=== PATIENT | male | born 1955 | race Caucasian/White ===

== ENCOUNTER → 2020-07-12 | Outpatient (CLI) | payer MEDICAID, OTHER ==
[~2020-07-12] MED LIST: ASPI-1497 MT; ATOR40TA70 MT; BENA20TA10 MT; BUSP10TA3 PO; DULA0.75 SQ; GLIM2TAB30 MT
== END | disposition home or self-care (01) ==
LOC: LAB 08:00
PROVIDERS: ATTEND Specialist
DX: Z01.818 Encounter for other preprocedural examination (principal); Z11.59 Encounter for screening for other viral diseases; R05 Cough; Z20.828 Contact with and (suspected) exposure to other viral communicable diseases
CPT/HCPCS: C9803; U0003

== ENCOUNTER → 2020-07-13 | Day surgery (SDC) | payer MEDICAID, OTHER ==
[~2020-07-13] VITALS: Ht 172.7 cm; Wt 96.2 kg
[~2020-07-13] MED LIST changes: +ACETAMINOPHEN 325MG TABLET PO PRN; +ASPIRIN/SOD BICARB/CITRIC ACID 324MG TAB EFF ONE; +ATROPINE SULFATE 1MG/10ML SYR IV PRN; +FENTANYL CITRATE/PF 50MCG/ML 2ML VIAL ONE; +HEPARIN SODIUM 1,000 UNIT/1ML VIAL IV ONE; +IODIXANOL 320MG/ML 100 ML BOTTLE IV ONE; +LIDOCAINE HCL 1% 20ML VIAL (Pyxis) INJ ONE; +MIDAZOLAM HCL 2 MG/2 ML VIAL ONE; +MORPHINE SULFATE 2 MG/ML CPJ (NOT FOR IM USE) IV PRN; +NICARDIPINE 100MCG/ML 10ML VIAL (CATH LAB) IV ONE; +NITROGLYCERIN 50MCG/ML 10ML VIAL (CATH LAB) IV ONE; +ONDANSETRON HCL 4MG/2ML INJ IV PRN
== END | disposition home or self-care (01) ==
LOC: CCL 06:46
PROVIDERS: ATTEND Specialist
DX: I25.10 Atherosclerotic heart disease of native coronary artery without angina pectoris (principal); I10 Essential (primary) hypertension; E11.9 Type 2 diabetes mellitus without complications; E78.5 Hyperlipidemia, unspecified; Z79.82 Long term (current) use of aspirin; Z79.84 Long term (current) use of oral hypoglycemic drugs; Z79.899 Other long term (current) drug therapy; Z88.5 Allergy status to narcotic agent; Z98.890 Other specified postprocedural states
CPT/HCPCS: 82962; 93458; C1769; C1887; C1893; J1644; J2250; J3010; J3490; Q9967

== ENCOUNTER 2020-07-17 07:59 | Emergency (ER) | payer MEDICAID ==
[~2020-07-17] VITALS: Ht 172.7 cm; Wt 95.0 kg
[~2020-07-17 07:59] MED LIST changes: -ACETAMINOPHEN 325MG TABLET PO PRN; -ASPIRIN/SOD BICARB/CITRIC ACID 324MG TAB EFF ONE; -ATROPINE SULFATE 1MG/10ML SYR IV PRN; -FENTANYL CITRATE/PF 50MCG/ML 2ML VIAL ONE; -HEPARIN SODIUM 1,000 UNIT/1ML VIAL IV ONE; -IODIXANOL 320MG/ML 100 ML BOTTLE IV ONE; -LIDOCAINE HCL 1% 20ML VIAL (Pyxis) INJ ONE; -MIDAZOLAM HCL 2 MG/2 ML VIAL ONE; -MORPHINE SULFATE 2 MG/ML CPJ (NOT FOR IM USE) IV PRN; -NICARDIPINE 100MCG/ML 10ML VIAL (CATH LAB) IV ONE; -NITROGLYCERIN 50MCG/ML 10ML VIAL (CATH LAB) IV ONE; -ONDANSETRON HCL 4MG/2ML INJ IV PRN
[2020-07-17] MEDS: HYDROCODONE/ACETAMINOPHEN 5/325MG TABLET PO ONE ×2 (09:15→09:16)
[2020-07-17 11:44] VITALS: BP 115/60
== END 2020-07-17 11:45 | disposition home or self-care (01) ==
LOC: ER 08:37
DX: T88.8XXA Other specified complications of surgical and medical care, not elsewhere classified, initial encounter (principal); E11.9 Type 2 diabetes mellitus without complications; J45.909 Unspecified asthma, uncomplicated; I51.9 Heart disease, unspecified; Z88.5 Allergy status to narcotic agent; Y83.8 Other surgical procedures as the cause of abnormal reaction of the patient, or of later complication, without mention of misadventure at the time of the procedure; Y92.018 Other place in single-family (private) house as the place of occurrence of the external cause
CPT/HCPCS: 76881; 93005; 99284

== ENCOUNTER 2024-10-16 07:38 | Inpatient (IN) | payer OTHER ==
[2024-10-16] VITALS (24 sets, daily range): BP systolic 120–144; BP diastolic 56–67; PULSE 49–96; RESP 12–34; TEMP 36.33624–37.16964; O2SAT 96–100
[~2024-10-16] VITALS: Ht 172.7 cm; Wt 98.9 kg
[~2024-10-16 07:38] MED LIST changes: +BENA-8 MT; -BENA20TA10 MT
[2024-10-16] MEDS: IPRATROPIUM/ALBUTEROL 0.5-3(2.5)MG/3ML NEB ONE (09:17)
[2024-10-16] MEDS: IPRATROPIUM/ALBUTEROL 0.5-3(2.5)MG/3ML NEB HHN NR (09:17)
[2024-10-16] MEDS ORDERED: LIDOCAINE HCL 1% 20ML VIAL ONE (10:35)
[2024-10-16] MEDS ORDERED: HEPARIN 1000 UNITS/ML 10ML ONE (10:35)
[2024-10-16] MEDS ORDERED: IODIXANOL 320MG/ML 100 ML BOTTLE IV ONE (10:35)
[2024-10-16] MEDS ORDERED: EPINEPHRINE 0.1MG/ML (1:10,000) 10ML SYR ONE (10:36)
[2024-10-16] MEDS ORDERED: ATROPINE SULFATE 1MG/10ML SYR ONE (10:36)
[2024-10-16] MEDS ORDERED: MIDAZOLAM HCL 2 MG/2 ML VIAL ONE (10:46)
[2024-10-16] MEDS ORDERED: FENTANYL CITRATE/PF 50MCG/ML 2ML VIAL ONE (10:47)
[2024-10-16] MEDS ORDERED: SITA100T11 PO (11:09)
[2024-10-16] MEDS ORDERED: TAMS-11 PO (11:09)
[2024-10-16] MEDS ORDERED: METF-416 PO (11:09)
[2024-10-16] MEDS ORDERED: INSU100V36 SQ (11:09)
[2024-10-16] MEDS ORDERED: OMEP20CA14 PO (11:09)
[2024-10-16] MEDS ORDERED: PRAV40TA58 PO (11:09)
[2024-10-16] MEDS ORDERED: ALLO100T PO (11:09)
[2024-10-16] MEDS ORDERED: GLIP10TA17 PO (11:09)
[2024-10-16] MEDS: SODIUM CHLORIDE 0.45% 500 ML IV ONE (11:50)
[2024-10-16] MEDS ORDERED: ONDANSETRON HCL 4MG/2ML INJ IV PRN (12:15)
[2024-10-16] MEDS ORDERED: ATROPINE SULFATE 1MG/10ML SYR IV PRN (12:15)
[2024-10-16] MEDS: NITROGLYCERIN OINT 1GM/INCH UDPKT TD NR (14:15)
[2024-10-16] MEDS ORDERED: MORPHINE SULFATE 2 MG/ML INJ (NOT FOR IM USE) IV PRN (14:30)
[2024-10-16] MEDS ORDERED: NITROGLYCERIN 0.4MG TABLET SL SL PRN (15:00)
[2024-10-16] MEDS: NITROGLYCERIN 0.4MG TABLET SL SL PRN (15:07)
[2024-10-16] MEDS: NITROGLYCERIN 50MG PREMIX 250 ML IV PRN (15:58)
[2024-10-16 16:17] LABS: BASOPHILS % 0.5 % (0.0-2.0); EOSINOPHILS % 0.9 % (0.0-5.0); HEMATOCRIT. 37.4 % (42.0-52.0); HEMOGLOBIN. 12.2 g/dL (14.0-18.0); LYMPHOCYTES % 61.4 % (20.0-50.0); MEAN CORPUSCULAR HEMOGLOBIN 30.2 pg (28.0-32.0); MEAN CORPUSCULAR HGB CONC 32.5 g/dL (31.0-37.0); MEAN CORPUSCULAR VOLUME 92.8 fL (80.0-94.0); MEAN PLATELET VOLUME 7.6 fl (7.4-10.4); MONOCYTES % 5.6 % (2.0-8.0); NEUTROPHILS % 31.6 % (40.0-76.0); PLATELET 161 x1000/uL (130-400); RED BLOOD CELL COUNT 4.03 mill/uL (4.7-6.1); RED CELL DISTRIBUTION WIDTH 13.1 % (11.6-14.6); WHITE BLOOD COUNT 9.6 x1000/uL (4.5-11.0)
[2024-10-16 16:26] LABS: CHLORIDE 104 mEq/L (98-107); PARTIAL THROMBOPLASTIN TIME 23.7 sec (23.4-31.0); POTASSIUM 4.3 mEq/L (3.5-5.1); PROTHROMBIN TIME 11.5 sec (9.6-11.0); SODIUM 137 mEq/L (136-145)
[2024-10-16 16:28] LABS: CALCIUM 9.4 mg/dL (8.7-10.4); CARBON DIOXIDE 25 mEq/L (21-32)
[2024-10-16] MEDS: FENTANYL CITRATE/PF 50MCG/ML 2ML VIAL IV PRN (16:29)
[2024-10-16 16:33] LABS: CREATININE 0.8 mg/dL (0.6-1.3); GLUCOSE 95 mg/dL (70-105); UREA NITROGEN BLOOD 12 mg/dL (9-23)
[2024-10-16 16:35] LABS: ALANINE AMINOTRANSFERASE 50 IU/L (10-49); ALBUMIN 3.7 g/dL (3.2-4.8); ASPARTATE AMINOTRANSFERASE 47 IU/L (<34); BILIRUBIN TOTAL 0.9 mg/dL (0.1-1.0); PROTEIN TOTAL 6.6 g/dL (6.0-8.3)
[2024-10-16] MEDS: HEPARIN 60 UNITS/KG BOLUS IV NR (17:22)
[2024-10-16] MEDS: HEPARIN 25,000 UNITS PREMIX 250 ML IV SCH (17:23)
[2024-10-16] MEDS ORDERED: NITROGLYCERIN OINT 1GM/INCH UDPKT TD SCH (18:00)
[2024-10-16 18:21] LABS: CLARITY URINE CLEAR (CLEAR); COLOR URINE ORANGE (YELLOW); GLUCOSE URINE NEGATIVE (NEGATIVE); KETONES URINE NEGATIVE (NEGATIVE); LEUKOCYTE ESTERASE URINE NEGATIVE (NEGATIVE); NITRITE URINE NEGATIVE (NEGATIVE); OCCULT BLOOD URINE 3+ (NEGATIVE); PROTEIN URINE TRACE (NEGATIVE)
[2024-10-16 18:44] LABS: TROPONIN I HIGH SENSITIVITY 17 ng/L (3.0-53)
[2024-10-16 18:45] LABS: AMYLASE 74 IU/L (30-118)
[2024-10-16 18:46] LABS: BACTERIA URINE NONE SEEN; RBC URINE TNTC /hpf (0-2); SQUAMOUS EPITHELIAL CELL URINE RARE /lpf (RARE/1+); WBC URINE 0-2 /hpf (0-2)
[2024-10-16] MEDS ORDERED: ATOR40TA70 MT (19:33)
[2024-10-16] MEDS: ASCORBIC ACID 500 MG TABLET PO SCH (20:32)
[2024-10-16] MEDS: CHLORHEXIDINE GLUCONATE 4% EXTERNAL USE TOP SCH (20:32)
[2024-10-16] MEDS: ATORVASTATIN CALCIUM 20MG TABLET PO SCH (20:32)
[2024-10-16] MEDS: PANTOPRAZOLE SODIUM 40 MG/VIAL IV SCH (20:32)
[2024-10-16] MEDS ORDERED: DIPHENHYDRAMINE 25MG CAPSULE PO PRN (21:00)
[2024-10-16] MEDS ORDERED: MAGNESIUM 2 G PREMIX 50 ML IV NR (21:15)
[2024-10-16] MEDS: MAGNESIUM 2 G PREMIX 50 ML IV NR (22:21)
[2024-10-16] MEDS ORDERED: HEPARIN BOLUS PRN aPTT 30-44 IV (23:00)
[2024-10-16] MEDS ORDERED: HEPARIN BOLUS PRN aPTT <30 IV (23:00)
[2024-10-17] VITALS (67 sets, daily range): BP systolic 90–149; BP diastolic 42–74; PULSE 45–110; RESP 11–24; TEMP 34.66944–38.3364; O2SAT 97–100
[2024-10-17] MEDS: DEXT 5%/0.45% NACL 1000ML 1,000 ML IV SCH (00:16)
[2024-10-17 03:51] LABS: BASOPHILS % 0.7 % (0.0-2.0); EOSINOPHILS % 1.2 % (0.0-5.0); HEMATOCRIT. 36.5 % (42.0-52.0); HEMOGLOBIN. 12.3 g/dL (14.0-18.0); LYMPHOCYTES % 60.3 % (20.0-50.0); MEAN CORPUSCULAR HEMOGLOBIN 30.5 pg (28.0-32.0); MEAN CORPUSCULAR HGB CONC 33.9 g/dL (31.0-37.0); MEAN CORPUSCULAR VOLUME 90.1 fL (80.0-94.0); MEAN PLATELET VOLUME 7.8 fl (7.4-10.4); MONOCYTES % 5.4 % (2.0-8.0); NEUTROPHILS % 32.4 % (40.0-76.0); PLATELET 152 x1000/uL (130-400); RED BLOOD CELL COUNT 4.05 mill/uL (4.7-6.1); RED CELL DISTRIBUTION WIDTH 13.2 % (11.6-14.6); WHITE BLOOD COUNT 8.2 x1000/uL (4.5-11.0)
[2024-10-17 04:05] LABS: CALCIUM 8.9 mg/dL (8.7-10.4); CARBON DIOXIDE 28 mEq/L (21-32); CHLORIDE 108 mEq/L (98-107); POTASSIUM 3.9 mEq/L (3.5-5.1); SODIUM 141 mEq/L (136-145)
[2024-10-17 04:10] LABS: CREATININE 0.9 mg/dL (0.6-1.3); GLUCOSE 152 mg/dL (70-105)
[2024-10-17 04:11] LABS: UREA NITROGEN BLOOD 15 mg/dL (9-23)
[2024-10-17] MEDS: VANCOMYCIN 1GM PMX (XELLIA) 200 ML IV NR (04:20)
[2024-10-17 05:00] LABS: PHOSPHORUS 3.8 mg/dL (2.5-4.9)
[2024-10-17] MEDS ORDERED: NOREPINEPHRINE 8MG/250ML PMX 250 ML IV PRN (05:00)
[2024-10-17] MEDS ORDERED: NICARDIPINE 40MG/200ML PREMIX 200 ML IV PRN (05:00)
[2024-10-17] MEDS ORDERED: DOBUTAMINE 250 MG/250 ML PREMIX IV PRN (05:00)
[2024-10-17] MEDS ORDERED: DEL NIDO CARDIOPLEGIA 1,000 ML (PREMIX) IV NR ×2 (05:00)
[2024-10-17] MEDS ORDERED: DOPAMINE 400 MG PREMIX 250 ML IV PRN (05:00)
[2024-10-17] MEDS ORDERED: PAPAVERINE HCL 180MG in SODIUM CHLORIDE 0.9% 24ML IV NR (05:00)
[2024-10-17] MEDS ORDERED: CEFAZOLIN 2,000 MG in DEXT 5% WATER 100 ML IV NR (05:00)
[2024-10-17] MEDS ORDERED: AMINOCAPROIC ACID 5,000 MG in SODIUM CHLORIDE 0.9% 250 ML IV NR (05:00)
[2024-10-17] MEDS ORDERED: EPINEPHRINE 5 MG in DEXT 5% WATER 250 ML IV PRN (05:00)
[2024-10-17] MEDS: MAGNESIUM 2 G PREMIX 50 ML IV NR (06:11)
[2024-10-17] MEDS: CHLORHEXIDINE GLUCONATE 4% EXTERNAL USE TOP NR (06:11)
[2024-10-17] MEDS ORDERED: THROMBIN (BOVINE) 5000 UNITS/VIAL TOP ONE (06:26)
[2024-10-17] MEDS ORDERED: POLYMYXIN B SULFATE 500000 UNITS/VIAL ONE (06:26)
[2024-10-17] MEDS ORDERED: DESMOPRESSIN ACETATE 4MCG/ML AMP ONE (06:27)
[2024-10-17] MEDS ORDERED: VASOPRESSIN 20 UNIT/ML 1ML ONE (06:27)
[2024-10-17] MEDS ORDERED: SEVOFLURANE 250 ML LIQUID INH ONE (06:37)
[2024-10-17] MEDS ORDERED: HEPARIN 1000 UNITS/ML 10ML ONE (06:37)
[2024-10-17] MEDS ORDERED: NITROGLYCERIN 50MG PREMIX 250 ML IV ONE (06:37)
[2024-10-17] MEDS ORDERED: FENTANYL CITRATE/PF 50MCG/ML 5ML VIAL ONE ×3 (07:03→13:43)
[2024-10-17] MEDS ORDERED: HYDROMORPHONE HCL/PF 1MG/ML INJ ONE ×2 (07:03→07:04)
[2024-10-17] MEDS ORDERED: MIDAZOLAM HCL 2 MG/2 ML VIAL ONE ×5 (07:04→07:05)
[2024-10-17] MEDS ORDERED: ROCURONIUM BROMIDE 10MG/ML VIAL 5ML IV ONE (07:05)
[2024-10-17] MEDS ORDERED: MORPHINE SULFATE 10 MG/ML INJ (NOT FOR IM USE) IV ONE (07:22)
[2024-10-17] MEDS ORDERED: DEXTROSE 50% WATER 50ML SYRINGE IV PRN ×2 (08:30)
[2024-10-17] MEDS ORDERED: CALCIUM CHLORIDE 1GM/10ML SYR IV ONE (12:26)
[2024-10-17 13:10] LABS: BASOPHILS % 0.5 % (0.0-2.0); EOSINOPHILS % 0.9 % (0.0-5.0); HEMATOCRIT. 25.8 % (42.0-52.0); HEMOGLOBIN. 8.7 g/dL (14.0-18.0); LYMPHOCYTES % 32.4 % (20.0-50.0); MEAN CORPUSCULAR HEMOGLOBIN 30.4 pg (28.0-32.0); MEAN CORPUSCULAR HGB CONC 33.7 g/dL (31.0-37.0); MEAN CORPUSCULAR VOLUME 90.3 fL (80.0-94.0); MEAN PLATELET VOLUME 7.7 fl (7.4-10.4); NEUTROPHILS % 64.2 % (40.0-76.0); PLATELET 149 x1000/uL (130-400); RED BLOOD CELL COUNT 2.86 mill/uL (4.7-6.1); RED CELL DISTRIBUTION WIDTH 12.9 % (11.6-14.6); WHITE BLOOD COUNT 8.7 x1000/uL (4.5-11.0)
[2024-10-17 13:19] LABS: CHLORIDE 104 mEq/L (98-107); POTASSIUM 5.5 mEq/L (3.5-5.1); SODIUM 137 mEq/L (136-145)
[2024-10-17 13:20] LABS: CARBON DIOXIDE 24 mEq/L (21-32)
[2024-10-17 13:21] LABS: CALCIUM 11.8 mg/dL (8.7-10.4)
[2024-10-17] MEDS ORDERED: MILRINONE 20MG-DEXT 5% PREMIX 100 ML IV ONE (13:21)
[2024-10-17] MEDS ORDERED: SODIUM BICARBONATE 8.4% 50MEQ/50ML SYR IV ONE (13:24)
[2024-10-17 13:25] LABS: CREATININE 1.1 mg/dL (0.6-1.3); GLUCOSE 156 mg/dL (70-105)
[2024-10-17 13:26] LABS: UREA NITROGEN BLOOD 14 mg/dL (9-23)
[2024-10-17 13:27] LABS: ALANINE AMINOTRANSFERASE 24 IU/L (10-49); ASPARTATE AMINOTRANSFERASE 39 IU/L (<34)
[2024-10-17 13:28] LABS: ALBUMIN 3.6 g/dL (3.2-4.8); BILIRUBIN TOTAL 1.2 mg/dL (0.1-1.0); PHOSPHORUS 3.7 mg/dL (2.5-4.9); PROTEIN TOTAL 5.1 g/dL (6.0-8.3)
[2024-10-17 13:44] LABS: INR 1.3; PARTIAL THROMBOPLASTIN TIME 31.6 sec (23.4-31.0); PROTHROMBIN TIME 14.2 sec (9.6-11.0)
[2024-10-17] MEDS ORDERED: SUGAMMADEX SODIUM 200MG/2ML VIAL IV ONE (14:02)
[2024-10-17 14:51] LABS: BG BASE EXCESS -5.7 mmol/L (-2.0-3.0); BG CARBOXYHEMOGLOBIN 0.4 % (0.5-1.5); BG DEOXYHEMOGLOBIN 3.1 % (0.0-5.0); BG FRACTION INSPIRED OXYGEN 100; BG HCO3 ACT 20.6 mmol/L (21.0-28.0); BG METHEMOGLOBIN 0.1 % (0.5-1.5); BG OXYGEN SATURATION 96.9 % (94.0-98.0); BG OXYHEMOGLOBIN 96.4 % (94.0-98.0); BG PCO2 43.8 mmHg (35.0-48.0); BG PH 7.291 (7.350-7.450); BG PO2 108.8 mmHg (83.0-108.0); BG SAMPLE SITE ALINE; BG TOTAL HEMOGLOBIN 10.2 g/dL (13.5-17.5); BG VENT MODE VENT - AC
[2024-10-17] MEDS: SODIUM BICARBONATE 8.4% 50MEQ/50ML SYR IV NR (15:02)
[2024-10-17] MEDS: INSULIN REGULAR 100 U/100 ML PREMIX IV PRN (15:03)
[2024-10-17 15:53] LABS: BASOPHILS % 0.2 % (0.0-2.0); EOSINOPHILS % 0.3 % (0.0-5.0); HEMATOCRIT. 27.3 % (42.0-52.0); HEMOGLOBIN. 9.4 g/dL (14.0-18.0); LYMPHOCYTES % 48.9 % (20.0-50.0); MEAN CORPUSCULAR HEMOGLOBIN 31.3 pg (28.0-32.0); MEAN CORPUSCULAR HGB CONC 34.4 g/dL (31.0-37.0); MEAN CORPUSCULAR VOLUME 91.2 fL (80.0-94.0); MONOCYTES % 3.3 % (2.0-8.0); NEUTROPHILS % 47.3 % (40.0-76.0); PLATELET 109 x1000/uL (130-400); WHITE BLOOD COUNT 10.4 x1000/uL (4.5-11.0)
[2024-10-17 16:10] LABS: CHLORIDE 108 mEq/L (98-107); POTASSIUM 5.1 mEq/L (3.5-5.1); SODIUM 142 mEq/L (136-145)
[2024-10-17] MEDS: BLOOD SUGAR DIAGNOSTIC STRIP TEST SCH ×2 (16:10→21:00)
[2024-10-17] MEDS: PHYTONADIONE 10MG/ML INJ SUBCUT NR (16:10)
[2024-10-17 16:11] LABS: CALCIUM 10.4 mg/dL (8.7-10.4); CARBON DIOXIDE 24 mEq/L (21-32)
[2024-10-17 16:16] LABS: BG BASE EXCESS -3.2 mmol/L (-2.0-3.0); BG CARBOXYHEMOGLOBIN 0.3 % (0.5-1.5); BG DEOXYHEMOGLOBIN 4.1 % (0.0-5.0); BG FRACTION INSPIRED OXYGEN 80; BG HCO3 ACT 22.6 mmol/L (21.0-28.0); BG METHEMOGLOBIN 0.3 % (0.5-1.5); BG OXYGEN SATURATION 95.9 % (94.0-98.0); BG OXYHEMOGLOBIN 95.3 % (94.0-98.0); BG PCO2 43.7 mmHg (35.0-48.0); BG PH 7.331 (7.350-7.450); BG PO2 92.3 mmHg (83.0-108.0); BG SAMPLE SITE ALINE; BG TOTAL HEMOGLOBIN 10.5 g/dL (13.5-17.5); BG VENT MODE VENT - AC
[2024-10-17 16:16] LABS: CREATININE 1.1 mg/dL (0.6-1.3); GLUCOSE 149 mg/dL (70-105); UREA NITROGEN BLOOD 15 mg/dL (9-23)
[2024-10-17] MEDS: PHYTONADIONE 10 MG in DEXTROSE 5% WATER 49 ML IV NR (16:39)
[2024-10-17 17:43] LABS: BG BASE EXCESS -0.3 mmol/L (-2.0-3.0); BG CARBOXYHEMOGLOBIN 0.3 % (0.5-1.5); BG FRACTION INSPIRED OXYGEN 50; BG HCO3 ACT 24.9 mmol/L (21.0-28.0); BG METHEMOGLOBIN 0.3 % (0.5-1.5); BG OXYHEMOGLOBIN 95.4 % (94.0-98.0); BG PCO2 43.1 mmHg (35.0-48.0); BG PH 7.379 (7.350-7.450); BG PO2 89.6 mmHg (83.0-108.0); BG SAMPLE SITE ALINE; BG TOTAL HEMOGLOBIN 10.3 g/dL (13.5-17.5); BG VENT MODE VENT - AC
[2024-10-17 18:46] LABS: BG BASE EXCESS 1.5 mmol/L (-2.0-3.0); BG CARBOXYHEMOGLOBIN 0.3 % (0.5-1.5); BG DEOXYHEMOGLOBIN 2.6 % (0.0-5.0); BG FRACTION INSPIRED OXYGEN 40; BG HCO3 ACT 26.5 mmol/L (21.0-28.0); BG METHEMOGLOBIN 0.3 % (0.5-1.5); BG OXYGEN SATURATION 97.4 % (94.0-98.0); BG OXYHEMOGLOBIN 96.8 % (94.0-98.0); BG PCO2 43.9 mmHg (35.0-48.0); BG PH 7.399 (7.350-7.450); BG PO2 107.4 mmHg (83.0-108.0); BG SAMPLE SITE ALINE; BG TOTAL HEMOGLOBIN 9.6 g/dL (13.5-17.5); BG VENT MODE VENT - AC
[2024-10-17 19:48] LABS: INR 1.4; PROTHROMBIN TIME 15.6 sec (9.6-11.0)
[2024-10-17] MEDS: ACETAMINOPHEN 325MG TABLET PO PRN (19:54)
[2024-10-17 20:14] LABS: BG BASE EXCESS 0.5 mmol/L (-2.0-3.0); BG CARBOXYHEMOGLOBIN 0.6 % (0.5-1.5); BG DEOXYHEMOGLOBIN 2.9 % (0.0-5.0); BG FRACTION INSPIRED OXYGEN 40; BG OXYGEN SATURATION 97.1 % (94.0-98.0); BG OXYHEMOGLOBIN 96.5 % (94.0-98.0); BG PCO2 39.3 mmHg (35.0-48.0); BG PH 7.421 (7.350-7.450); BG PO2 99.8 mmHg (83.0-108.0); BG TOTAL HEMOGLOBIN 9.2 g/dL (13.5-17.5); BG VENT MODE VENT - SIMV
[2024-10-17 20:25] LABS: BASOPHILS % 0.3 % (0.0-2.0); EOSINOPHILS % 0.2 % (0.0-5.0); HEMATOCRIT. 25.9 % (42.0-52.0); MEAN CORPUSCULAR HEMOGLOBIN 31.3 pg (28.0-32.0); MEAN CORPUSCULAR HGB CONC 34.8 g/dL (31.0-37.0); MEAN CORPUSCULAR VOLUME 90.1 fL (80.0-94.0); MEAN PLATELET VOLUME 7.3 fl (7.4-10.4); MONOCYTES % 8.2 % (2.0-8.0); NEUTROPHILS % 68.3 % (40.0-76.0); PLATELET 122 x1000/uL (130-400); RED BLOOD CELL COUNT 2.88 mill/uL (4.7-6.1); WHITE BLOOD COUNT 7.6 x1000/uL (4.5-11.0)
[2024-10-17 20:39] LABS: INR 1.1; PARTIAL THROMBOPLASTIN TIME 40.7 sec (23.4-31.0); PROTHROMBIN TIME 11.9 sec (9.6-11.0)
[2024-10-17] MEDS: BACITRACIN 14GM TUBE TOP SCH (21:00)
[2024-10-17] MEDS: IPRATROPIUM/ALBUTEROL 0.5-3(2.5)MG/3ML NEB HHN SCH (21:07)
[2024-10-17 21:12] LABS: BASOPHILS % 0.2 % (0.0-2.0); EOSINOPHILS % 0.2 % (0.0-5.0); HEMATOCRIT. 25.3 % (42.0-52.0); HEMOGLOBIN. 8.7 g/dL (14.0-18.0); LYMPHOCYTES % 21.9 % (20.0-50.0); MEAN CORPUSCULAR HEMOGLOBIN 30.9 pg (28.0-32.0); MEAN CORPUSCULAR HGB CONC 34.5 g/dL (31.0-37.0); MEAN CORPUSCULAR VOLUME 89.6 fL (80.0-94.0); MONOCYTES % 8.9 % (2.0-8.0); NEUTROPHILS % 68.8 % (40.0-76.0); PLATELET 121 x1000/uL (130-400); RED BLOOD CELL COUNT 2.83 mill/uL (4.7-6.1); RED CELL DISTRIBUTION WIDTH 12.9 % (11.6-14.6); WHITE BLOOD COUNT 7.1 x1000/uL (4.5-11.0)
[2024-10-17 21:19] LABS: CHLORIDE 113 mEq/L (98-107); SODIUM 148 mEq/L (136-145)
[2024-10-17 21:20] LABS: CALCIUM 10.3 mg/dL (8.7-10.4); CARBON DIOXIDE 29 mEq/L (21-32)
[2024-10-17 21:22] LABS: POTASSIUM 3.1 mEq/L (3.5-5.1)
[2024-10-17 21:25] LABS: CREATININE 1.2 mg/dL (0.6-1.3); GLUCOSE 112 mg/dL (70-105); UREA NITROGEN BLOOD 15 mg/dL (9-23)
[2024-10-17 21:30] LABS: PHOSPHORUS 0.7 mg/dL (2.5-4.9)
[2024-10-17 22:20] LABS: BASOPHILS % 0.4 % (0.0-2.0); EOSINOPHILS % 0.2 % (0.0-5.0); HEMATOCRIT. 27.7 % (42.0-52.0); HEMOGLOBIN. 9.6 g/dL (14.0-18.0); LYMPHOCYTES % 23.3 % (20.0-50.0); MEAN CORPUSCULAR HEMOGLOBIN 31.7 pg (28.0-32.0); MEAN CORPUSCULAR HGB CONC 34.5 g/dL (31.0-37.0); MEAN CORPUSCULAR VOLUME 91.7 fL (80.0-94.0); MEAN PLATELET VOLUME 7.6 fl (7.4-10.4); MONOCYTES % 8.9 % (2.0-8.0); NEUTROPHILS % 67.2 % (40.0-76.0); PLATELET 119 x1000/uL (130-400); RED BLOOD CELL COUNT 3.02 mill/uL (4.7-6.1); RED CELL DISTRIBUTION WIDTH 13.2 % (11.6-14.6); WHITE BLOOD COUNT 7.7 x1000/uL (4.5-11.0)
[2024-10-17 22:22] LABS: CHLORIDE 112 mEq/L (98-107); POTASSIUM 3.2 mEq/L (3.5-5.1); SODIUM 148 mEq/L (136-145)
[2024-10-17 22:23] LABS: CALCIUM 10.3 mg/dL (8.7-10.4); CARBON DIOXIDE 28 mEq/L (21-32)
[2024-10-17 22:28] LABS: CREATININE 1.1 mg/dL (0.6-1.3); GLUCOSE 115 mg/dL (70-105); UREA NITROGEN BLOOD 14 mg/dL (9-23)
[2024-10-17 22:30] LABS: PHOSPHORUS 1.1 mg/dL (2.5-4.9)
[2024-10-17] MEDS ORDERED: KCL 10MEQ/50ML PREMIX 100 ML IV PRN (22:45)
[2024-10-17] MEDS ORDERED: KCL 10MEQ/50ML PREMIX 150 ML IV PRN (22:45)
[2024-10-17] MEDS: KCL 10MEQ/50ML PREMIX 200 ML IV PRN (23:25)
[2024-10-18] VITALS (93 sets, daily range): BP systolic 95–160; BP diastolic 40–91; PULSE 64–89; RESP 15–31; TEMP 36.61404–37.66968; O2SAT 86–100
[2024-10-18] MEDS: POTASSIUM PHOSPHATE 15 MMOL in DEXT 5% WATER 245 ML IV ONE (01:41)
[2024-10-18] MEDS: PROPOFOL 10MG/ML 100ML 100 ML IV PRN (01:50)
[2024-10-18] MEDS: INSULIN REGULAR 100U/100ML PMX 100 ML IV SCH (03:21)
[2024-10-18 06:47] LABS: BG BASE EXCESS 1.3 mmol/L (-2.0-3.0); BG CARBOXYHEMOGLOBIN 0.3 % (0.5-1.5); BG DEOXYHEMOGLOBIN 2.3 % (0.0-5.0); BG FRACTION INSPIRED OXYGEN 40; BG HCO3 ACT 26.3 mmol/L (21.0-28.0); BG METHEMOGLOBIN 0.3 % (0.5-1.5); BG OXYGEN SATURATION 97.7 % (94.0-98.0); BG OXYHEMOGLOBIN 97.1 % (94.0-98.0); BG PCO2 43.4 mmHg (35.0-48.0); BG PH 7.401 (7.350-7.450); BG PO2 108.8 mmHg (83.0-108.0); BG TOTAL HEMOGLOBIN 10.4 g/dL (13.5-17.5); BG VENT MODE VENT - CPAP
[2024-10-18 06:54] LABS: BASOPHILS % 0.4 % (0.0-2.0); EOSINOPHILS % 0.1 % (0.0-5.0); HEMATOCRIT. 30.3 % (42.0-52.0); HEMOGLOBIN. 9.8 g/dL (14.0-18.0); LYMPHOCYTES % 27.9 % (20.0-50.0); MEAN CORPUSCULAR HEMOGLOBIN 29.9 pg (28.0-32.0); MEAN CORPUSCULAR HGB CONC 32.4 g/dL (31.0-37.0); MEAN CORPUSCULAR VOLUME 92.1 fL (80.0-94.0); MEAN PLATELET VOLUME 7.9 fl (7.4-10.4); MONOCYTES % 10.8 % (2.0-8.0); NEUTROPHILS % 60.8 % (40.0-76.0); PLATELET 138 x1000/uL (130-400); RED BLOOD CELL COUNT 3.29 mill/uL (4.7-6.1); RED CELL DISTRIBUTION WIDTH 13.4 % (11.6-14.6); WHITE BLOOD COUNT 10.8 x1000/uL (4.5-11.0)
[2024-10-18 06:55] LABS: CHLORIDE 112 mEq/L (98-107); SODIUM 147 mEq/L (136-145)
[2024-10-18 06:56] LABS: CARBON DIOXIDE 30 mEq/L (21-32)
[2024-10-18 06:57] LABS: CALCIUM 9.8 mg/dL (8.7-10.4)
[2024-10-18 07:01] LABS: CREATININE 1.3 mg/dL (0.6-1.3); GLUCOSE 129 mg/dL (70-105)
[2024-10-18 07:02] LABS: TRIGLYCERIDE 150 mg/dL (0-150); UREA NITROGEN BLOOD 17 mg/dL (9-23)
[2024-10-18 07:04] LABS: PHOSPHORUS 4.5 mg/dL (2.5-4.9)
[2024-10-18 08:47] LABS: POTASSIUM 5.4 mEq/L (3.5-5.1)
[2024-10-18] MEDS ORDERED: RACEPINEPHRINE 2.25% 0.5ML NEB VIAL ONE (09:14)
[2024-10-18] MEDS: ASPIRIN 81MG TABLET PO SCH (09:21)
[2024-10-18 13:23] LABS: PHOSPHORUS 4.6 mg/dL (2.5-4.9)
[2024-10-18 13:24] LABS: BASOPHILS % 0.4 % (0.0-2.0); HEMATOCRIT. 30.8 % (42.0-52.0); LYMPHOCYTES % 22.1 % (20.0-50.0); MEAN CORPUSCULAR HEMOGLOBIN 30.6 pg (28.0-32.0); MEAN CORPUSCULAR HGB CONC 32.6 g/dL (31.0-37.0); MEAN PLATELET VOLUME 8.9 fl (7.4-10.4); MONOCYTES % 9.3 % (2.0-8.0); NEUTROPHILS % 68.2 % (40.0-76.0); PLATELET 138 x1000/uL (130-400); RED BLOOD CELL COUNT 3.28 mill/uL (4.7-6.1); WHITE BLOOD COUNT 13.6 x1000/uL (4.5-11.0)
[2024-10-18] MEDS ORDERED: DEXTROSE 50% WATER 50ML SYRINGE IV PRN (14:15)
[2024-10-18] MEDS: MAGNESIUM 1 G PREMIX 100 ML IV NR (14:29)
[2024-10-18 16:41] LABS: CHLORIDE 106 mEq/L (98-107); POTASSIUM 4.1 mEq/L (3.5-5.1); SODIUM 139 mEq/L (136-145)
[2024-10-18 16:42] LABS: CARBON DIOXIDE 24 mEq/L (21-32)
[2024-10-18 16:47] LABS: CREATININE 1.1 mg/dL (0.6-1.3); GLUCOSE 235 mg/dL (70-105); UREA NITROGEN BLOOD 20 mg/dL (9-23)
[2024-10-18 16:49] LABS: PHOSPHORUS 4.5 mg/dL (2.5-4.9)
[2024-10-18] MEDS: BLOOD SUGAR DIAGNOSTIC STRIP TEST SCH (17:28)
[2024-10-18] MEDS: INSULIN LISPRO 100 UNITS/ML SUBCUT SCH (17:39)
[2024-10-19] VITALS (56 sets, daily range): BP systolic 111–168; BP diastolic 55–89; PULSE 75–90; RESP 14–35; TEMP 36.83628–37.28076; O2SAT 90–98
[2024-10-19] MEDS: DEXT 5%/0.45% NACL 1000ML 1,000 ML IV SCH (02:16)
[2024-10-19 04:23] LABS: HEMATOCRIT 26.9 % (42.0-52.0); HEMOGLOBIN 9.1 g/dL (14.0-18.0); MEAN CORPUSCULAR HEMOGLOBIN 31.2 pg (28.0-32.0); MEAN CORPUSCULAR HGB CONC 33.9 g/dL (31.0-37.0); MEAN CORPUSCULAR VOLUME 92.1 fL (80.0-94.0); PLATELET 112 x1000/uL (130-400); RED BLOOD CELL COUNT 2.92 mill/uL (4.7-6.1); RED CELL DISTRIBUTION WIDTH 13.3 % (11.6-14.6); WHITE BLOOD COUNT 10.5 x1000/uL (4.5-11.0)
[2024-10-19 04:28] LABS: CARBON DIOXIDE 25 mEq/L (21-32); CHLORIDE 105 mEq/L (98-107); POTASSIUM 4.5 mEq/L (3.5-5.1); SODIUM 138 mEq/L (136-145)
[2024-10-19 04:29] LABS: CALCIUM 9.2 mg/dL (8.7-10.4)
[2024-10-19 04:34] LABS: CREATININE 1.1 mg/dL (0.6-1.3); GLUCOSE 305 mg/dL (70-105); UREA NITROGEN BLOOD 19 mg/dL (9-23)
[2024-10-19] MEDS: MAGNESIUM 2 G PREMIX 50 ML IV SCH (08:22)
[2024-10-19 10:19] LABS: BASOPHILS % 0.3 % (0.0-2.0); EOSINOPHILS % 0.1 % (0.0-5.0); HEMATOCRIT. 27.7 % (42.0-52.0); HEMOGLOBIN. 9.3 g/dL (14.0-18.0); LYMPHOCYTES % 25.4 % (20.0-50.0); MEAN CORPUSCULAR HGB CONC 33.7 g/dL (31.0-37.0); MEAN CORPUSCULAR VOLUME 91.9 fL (80.0-94.0); MONOCYTES % 7.3 % (2.0-8.0); NEUTROPHILS % 66.9 % (40.0-76.0); PLATELET 130 x1000/uL (130-400); RED BLOOD CELL COUNT 3.01 mill/uL (4.7-6.1)
[2024-10-19 10:30] LABS: CHLORIDE 102 mEq/L (98-107); POTASSIUM 4.3 mEq/L (3.5-5.1); SODIUM 135 mEq/L (136-145)
[2024-10-19 10:31] LABS: CALCIUM 9.2 mg/dL (8.7-10.4); CARBON DIOXIDE 23 mEq/L (21-32)
[2024-10-19 10:36] LABS: GLUCOSE 332 mg/dL (70-105); UREA NITROGEN BLOOD 19 mg/dL (9-23)
[2024-10-19 10:38] LABS: PHOSPHORUS 2.8 mg/dL (2.5-4.9)
[2024-10-19] MEDS: SODIUM CHLORIDE 0.45% 1,000 ML IV SCH (13:16)
[2024-10-19] MEDS: INSULIN LISPRO 100 UNITS/ML SUBCUT SCH (13:17)
[2024-10-19] MEDS: METFORMIN HCL 500MG TABLET PO SCH (17:48)
[2024-10-19] MEDS: INSULIN GLARGINE 100 UNITS/ML SUBCUT SCH (22:01)
[2024-10-20] VITALS (82 sets, daily range): BP systolic 100–180; BP diastolic 56–88; PULSE 71–96; RESP 12–33; TEMP 37.00296–37.83636; O2SAT 78–100
[2024-10-20 05:20] LABS: BASOPHILS % 0.2 % (0.0-2.0); EOSINOPHILS % 0.6 % (0.0-5.0); HEMATOCRIT. 26.1 % (42.0-52.0); HEMOGLOBIN. 9.2 g/dL (14.0-18.0); LYMPHOCYTES % 37.9 % (20.0-50.0); MEAN CORPUSCULAR HEMOGLOBIN 31.7 pg (28.0-32.0); MEAN CORPUSCULAR HGB CONC 35.1 g/dL (31.0-37.0); MEAN CORPUSCULAR VOLUME 90.1 fL (80.0-94.0); MEAN PLATELET VOLUME 7.7 fl (7.4-10.4); MONOCYTES % 7.9 % (2.0-8.0); NEUTROPHILS % 53.4 % (40.0-76.0); PLATELET 117 x1000/uL (130-400); RED CELL DISTRIBUTION WIDTH 13.1 % (11.6-14.6); WHITE BLOOD COUNT 8.3 x1000/uL (4.5-11.0)
[2024-10-20 05:21] LABS: CHLORIDE 107 mEq/L (98-107); POTASSIUM 4.2 mEq/L (3.5-5.1); SODIUM 138 mEq/L (136-145)
[2024-10-20 05:22] LABS: CALCIUM 8.9 mg/dL (8.7-10.4); CARBON DIOXIDE 24 mEq/L (21-32)
[2024-10-20 05:27] LABS: CREATININE 0.8 mg/dL (0.6-1.3); UREA NITROGEN BLOOD 19 mg/dL (9-23)
[2024-10-20 05:29] LABS: PHOSPHORUS 2.8 mg/dL (2.5-4.9)
[2024-10-20 05:58] LABS: GLUCOSE 167 mg/dL (70-105)
[2024-10-20] MEDS: MAGNESIUM 2 G PREMIX 50 ML IV NR ×2 (06:46→17:02)
[2024-10-20] MEDS ORDERED: NALOXONE HCL 0.4MG/ML VIAL IV PRN (09:15)
[2024-10-20] MEDS ORDERED: TRAMADOL 50MG TABLET PO NR (09:15)
[2024-10-20 12:57] LABS: CARBON DIOXIDE 24 mEq/L (21-32); CHLORIDE 102 mEq/L (98-107); POTASSIUM 4.3 mEq/L (3.5-5.1); SODIUM 136 mEq/L (136-145)
[2024-10-20 12:58] LABS: CALCIUM 9.2 mg/dL (8.7-10.4)
[2024-10-20 13:02] LABS: CREATININE 0.9 mg/dL (0.6-1.3); GLUCOSE 228 mg/dL (70-105)
[2024-10-20 13:03] LABS: UREA NITROGEN BLOOD 20 mg/dL (9-23)
[2024-10-20] MEDS: LACTULOSE 20G/30ML UDC PO PRN (18:57)
[2024-10-20] MEDS: TRAMADOL 50MG TABLET PO PRN (20:03)
[2024-10-21] VITALS (8 sets, daily range): BP systolic 116–139; BP diastolic 60–89; PULSE 71–81; RESP 13–22; TEMP 36.50292–36.89184; O2SAT 93–100
[2024-10-21 07:56] LABS: CARBON DIOXIDE 26 mEq/L (21-32); CHLORIDE 105 mEq/L (98-107); POTASSIUM 3.7 mEq/L (3.5-5.1); SODIUM 139 mEq/L (136-145)
[2024-10-21 07:58] LABS: CALCIUM 8.8 mg/dL (8.7-10.4)
[2024-10-21 08:02] LABS: CREATININE 0.8 mg/dL (0.6-1.3); GLUCOSE 156 mg/dL (70-105)
[2024-10-21 08:03] LABS: UREA NITROGEN BLOOD 20 mg/dL (9-23)
[2024-10-21] MEDS: POTASSIUM CHLORIDE 20MEQ TABLET SR PO NR (10:19)
[2024-10-21 10:21] LABS: BASOPHILS % 0.6 % (0.0-2.0); EOSINOPHILS % 1.9 % (0.0-5.0); HEMATOCRIT. 27.6 % (42.0-52.0); HEMOGLOBIN. 9.4 g/dL (14.0-18.0); LYMPHOCYTES % 44.7 % (20.0-50.0); MEAN CORPUSCULAR HEMOGLOBIN 31.1 pg (28.0-32.0); MEAN CORPUSCULAR HGB CONC 34.1 g/dL (31.0-37.0); MEAN CORPUSCULAR VOLUME 91.3 fL (80.0-94.0); MONOCYTES % 8.6 % (2.0-8.0); NEUTROPHILS % 44.2 % (40.0-76.0); RED BLOOD CELL COUNT 3.02 mill/uL (4.7-6.1); RED CELL DISTRIBUTION WIDTH 13.2 % (11.6-14.6); WHITE BLOOD COUNT 9.1 x1000/uL (4.5-11.0)
[2024-10-21 10:33] LABS: DIFFERENTIAL COMMENT 1; MEAN PLATELET VOLUME 9.3 fl (7.4-10.4); PLATELET 149 x1000/uL (130-400)
== END 2024-10-21 18:37 | disposition home health service (06) | DRG 233 ==
LOC: CCL 07:38 → OBSVTOIN 19:37 → CVICU 19:37 → 3WST 10-20 19:41
PROVIDERS: ADMIT Internal Medicine; ATTEND Internal Medicine
PROC: 4A023N7 Measurement of Cardiac Sampling and Pressure, Left Heart, Percutaneous Approach (ICD-10-PCS; 2024-10-16)
PROC: B211YZZ Fluoroscopy of Multiple Coronary Arteries using Other Contrast (ICD-10-PCS; 2024-10-16)
PROC: B215YZZ Fluoroscopy of Left Heart using Other Contrast (ICD-10-PCS; 2024-10-16)
PROC: 021009W Bypass Coronary Artery, One Artery from Aorta with Autologous Venous Tissue, Open Approach (ICD-10-PCS; principal; 2024-10-17)
PROC: 02100Z9 Bypass Coronary Artery, One Artery from Left Internal Mammary, Open Approach (ICD-10-PCS; 2024-10-17)
PROC: 06BQ4ZZ Excision of Left Saphenous Vein, Percutaneous Endoscopic Approach (ICD-10-PCS; 2024-10-17)
PROC: 5A1221Z Performance of Cardiac Output, Continuous (ICD-10-PCS; 2024-10-17)
PROC: B24BZZ4 Ultrasonography of Heart with Aorta, Transesophageal (ICD-10-PCS; 2024-10-17)
PROC: 6A550Z2 Pheresis of Platelets, Single (ICD-10-PCS; 2024-10-17)
PROC: 30233K1 Transfusion of Nonautologous Frozen Plasma into Peripheral Vein, Percutaneous Approach (ICD-10-PCS; 2024-10-17)
PROC: 0BH17EZ Insertion of Endotracheal Airway into Trachea, Via Natural or Artificial Opening (ICD-10-PCS; 2024-10-20)
PROC: 5A1935Z Respiratory Ventilation, Less than 24 Consecutive Hours (ICD-10-PCS; 2024-10-20)
DX: I25.110 Atherosclerotic heart disease of native coronary artery with unstable angina pectoris (principal); J96.01 Acute respiratory failure with hypoxia; N17.9 Acute kidney failure, unspecified; K76.6 Portal hypertension; I10 Essential (primary) hypertension; T50.8X5A Adverse effect of diagnostic agents, initial encounter; K21.9 Gastro-esophageal reflux disease without esophagitis; D64.9 Anemia, unspecified; E11.40 Type 2 diabetes mellitus with diabetic neuropathy, unspecified; N40.0 Benign prostatic hyperplasia without lower urinary tract symptoms; E83.42 Hypomagnesemia; G35 Multiple sclerosis; E78.5 Hyperlipidemia, unspecified; K74.60 Unspecified cirrhosis of liver; M10.9 Gout, unspecified; Z63.4 Disappearance and death of family member; Z88.5 Allergy status to narcotic agent; Z79.82 Long term (current) use of aspirin; Z79.899 Other long term (current) drug therapy; Z79.84 Long term (current) use of oral hypoglycemic drugs; Y92.89 Other specified places as the place of occurrence of the external cause; Z79.4 Long term (current) use of insulin; Z82.49 Family history of ischemic heart disease and other diseases of the circulatory system
CPT/HCPCS: 36415; 36600; 71045; 80048; 80053; 81003; 82150; 82375; 82805; 82962; 83036; 83605; 83735; 84100; 84478; 84484; 85025; 85027; 85347; 85384; 86850; 86900; 86920; 86927; 87070; 87426; 92610; 93005; 93306; 93458; 93880; 93970; 94003; 94640; 97110; 97116; 97162; 97166; 97530; 97535; C1725; C1729; C1751; C1758; C1769; C1887; C1893; J0461; J0690; J1171; J1644; J1815; J2250; J2260; J2270; J2440; J2470; J2597; J2704; J3010; J3370; J3430; J3475; J3480; J3490; J7050; J7060; L3908; P9017; P9034; Q9967